=== PATIENT | female | born 2005 | race Caucasian/White ===

== ENCOUNTER 2024-08-01 10:57 | Inpatient (IN) ==
[2024-08-01] MEDS ORDERED: OXYTOCIN 30 UNITS/NSS 30 UNITS/500 ML BAG IV PRN ×2 (11:35→20:16)
[2024-08-01] MEDS ORDERED: CALCIUM CARBONATE 500 MG CHEWABLE TAB PO PRN (11:35)
[2024-08-01] MEDS ORDERED: LIDOCAINE 1% LOCAL 20 ML VIAL INFIL PRN (11:35)
[2024-08-01] MEDS: OXYTOCIN 30 UNITS/NSS 30 UNITS/500 ML BAG IV PRN (12:16)
[2024-08-01] MEDS: LACTATED RINGER'S 1,000 ML IV PRN (12:17)
[2024-08-01 12:18] LABS: Hematocrit (blood only) 36.7 % (37.0-47.0); Hemoglobin 12.2 g/dl (12.0-16.0); Mean Corpuscular Hemoglobin 30.8 pg (25.0-34.0); Mean Corpuscular Hgb Conc 33.2 g/dL (32.0-36.0); Mean Corpuscular Volume 92.7 fL (80.0-100.0); Mean Platelet Volume 10.8 fL (9.4-12.4); Platelet Count 194 K/uL (130-400); RDW Coefficient of Variation 14.9 % (11.5-14.5); RDW Standard Deviation 50.5 fL (36.4-46.3); Red Blood Count 3.96 M/uL (4.20-5.40); White Blood Count 7.53 K/ul (4.8-10.8)
[2024-08-01] MEDS ORDERED: BUPIVACAINE 0.25% PF 30 ML VIAL EPI PRN (15:02)
[2024-08-01] MEDS ORDERED: NALBUPHINE HCL INJ 10 MG/ML AMP IV PRN (15:02)
[2024-08-01] MEDS ORDERED: diphenhydrAMINE 50 MG/ML VIAL IV PRN (15:02)
[2024-08-01] MEDS ORDERED: LIDOCAINE 2% MPF LOCAL 5 ML VIAL EPI PRN (15:02)
[2024-08-01] MEDS ORDERED: ROPIVACAINE 0.5% PF 5 MG/ML 20 ML VIAL EPI PRN (15:02)
[2024-08-01] MEDS ORDERED: SODIUM CHLORIDE 0.9% PF INJ 10 ML VIAL EPI PRN (15:02)
[2024-08-01] MEDS ORDERED: NALOXONE HCL 1 MG in SODIUM CHLORIDE 0.9% 1,000 ML IV PRN (15:02)
[2024-08-01] MEDS ORDERED: ONDANSETRON INJ 2 MG/ML 2 ML VIAL IV PRN (15:02)
[2024-08-01] MEDS ORDERED: fentaNYL citrate PF 100 MCG/2 ML VIAL EPI PRN (15:02)
[2024-08-01] MEDS ORDERED: fentANYL 2 MCG/ML BUPIVacaine 0.125%-NSS 100ML BAG EPI PRN (15:02)
[2024-08-01] MEDS ORDERED: ePHEDrine sulfate 50 MG/ML AMP IV PRN (15:02)
[2024-08-01] MEDS ORDERED: NALOXONE HCL 0.4 MG/1 ML VIAL/CARP IV PRN (15:02)
--- NOTE | 2024-08-01 15:06 | Anesthesiology Consultation ---
Date of Service August 01, 2024 Assessment & Plan (1) Encounter for pre-operative examination: Chart Review Chart Review: Patient NOT seen in Pre Admission Testing and Acceptable Risk for Labor Epidural Consults Requested none History Height/Weight Height: 5 ft 10 in Weight: 107.592 kg Allergies Allergy/AdvReac Type Severity Reaction Status Date / Time shrimp Allergy Severe Anaphylaxis Verified 08/01/24 11:39 azithromycin Allergy Intermediate Hives Verified 07/30/24 10:00 Medications Home Medications Medication Instructions Recorded Confirmed Last Taken 21-iron fu-folic acid PO 12/19/23 07/30/24 Unknown [ Complete] Active Medications Generic Name Dose Route Start Last Admin Trade Name Freq PRN Reason Stop Dose Admin Lactated Ringer's 1,000 mls @ 125 mls/hr 08/01/24 11:35 08/01/24 14:50 Lr IV 08/02/24 11:34 999 mls/hr .Q8H PRN Infusion L&D Protocol Protocol Oxytocin 30 units in 500 mls @ 7 mls/hr 08/01/24 11:35 08/01/24 14:00 Pitocin 30 Units/Nss IV 08/03/24 11:34 0.42 units/hr .Q24H PRN 7 mls/hr Labor Induction/Augmentation Titration Protocol 0.42 UNITS/HR Past Medical History Medical History (Updated 08/01/24 @ 15:06 by Anthony Farmer MD) Encounter for pre-operative examination Varicella vaccination Exercise / Class Metabolic Activity II 4-5 Yardwork/Stairs/Walk up hill Past Family History Family History Grandmother (Maternal) Breast cancer Diabetes Hypertension Hypercholesteremia Grandfather (Maternal) Asthma Depression Mother Asthma Migraine Depression Gestational diabetes Aunt Osteoporosis Denies family history of Ovarian cancer Colorectal cancer Past Surgical History Surgical History No history of previous surgery Past Anesthesia History No Hx of Anesthesia Complications and No Family Hx of Anesthesia Complications Social History Smoking Status: Never smoker Do You Dip or Chew Tobacco: No Hx Alcohol Use: No Hx Substance Use: No Physical Exam Vital Signs Last Vital Signs Temp 36.6 C 08/01/24 14:02 Pulse 89 08/01/24 15:29 Resp 20 08/01/24 14:02 BP 147/77 H 08/01/24 15:28 Pulse Ox 100 08/01/24 15:29 Testing Laboratory Results 08/01/24 11:54
[2024-08-01] MEDS: fentaNYL citrate PF 100 MCG/2 ML VIAL EPI STA (15:28)
[2024-08-01] MEDS: BUPIVACAINE 0.25% PF 30 ML VIAL ONE (15:29)
[2024-08-01] MEDS: fentANYL 2 MCG/ML BUPIVacaine 0.125%-NSS 100ML BAG ONE (15:29)
[2024-08-01] MEDS: LIDOCAINE 2%/EPINEPHRINE 1:200,000 20 ML PF ONE (15:29)
--- NOTE | 2024-08-01 16:07 | Labor Progress Brief Note ---
Date of Service August 01, 2024 Subjective comfortable with epidural. Assessment & Plan (1) PROM (premature rupture of membranes): (2) Encounter for induction of labor: Plan good cx progress. fhts categ 1. c/w pitocin Physical Exam Constitutional: WD/WN, vitals as above Genitourinary: Manual OB Exam: + cervical dilation 4 cm, + cervical effacement 90% and + station -1 OB Exam Monitor Tracing: + external FHT monitor used, + external uterine monitor used (q3), + category I and + normal FHT variability Results & Data Vital Signs (Past 12 Hours) Vital Signs Temp Pulse Resp BP Pulse Ox 08/01/24 16:04 98 08/01/24 16:04 77 08/01/24 16:00 72 08/01/24 16:00 93/54 L 08/01/24 15:59 98 08/01/24 15:59 70 08/01/24 15:56 60 08/01/24 15:56 85/49 L 08/01/24 15:54 99 08/01/24 15:54 80 08/01/24 15:52 90 08/01/24 15:52 120/60 08/01/24 15:49 97 08/01/24 15:49 86 08/01/24 15:47 102 H 08/01/24 15:47 109/68 08/01/24 15:44 98 08/01/24 15:44 93 H 08/01/24 15:40 109 H 08/01/24 15:40 120/65 08/01/24 15:39 98 08/01/24 15:39 93 H 08/01/24 15:38 96 H 08/01/24 15:38 130/71 08/01/24 15:36 99 H 08/01/24 15:36 124/70 08/01/24 15:35 18 08/01/24 15:35 18 08/01/24 15:34 98 08/01/24 15:34 99 H 08/01/24 15:34 131/69 08/01/24 15:32 100 H 08/01/24 15:32 140/76 08/01/24 15:30 18 08/01/24 15:30 18 08/01/24 15:30 94 H 08/01/24 15:30 138/78 08/01/24 15:29 100 08/01/24 15:29 89 08/01/24 15:28 88 08/01/24 15:28 147/77 H 08/01/24 15:26 87 08/01/24 15:26 143/74 H 08/01/24 15:25 20 08/01/24 15:25 20 08/01/24 15:25 105 H 08/01/24 15:25 153/103 H 08/01/24 15:24 100 08/01/24 15:24 86 08/01/24 15:19 100 08/01/24 15:19 94 H 08/01/24 15:14 99 08/01/24 15:14 93 H 08/01/24 15:04 97.9 F 08/01/24 15:03 96 H 08/01/24 15:03 158/86 H 08/01/24 14:02 20 08/01/24 14:02 97.9 F 20 08/01/24 14:01 77 08/01/24 14:01 138/82 08/01/24 13:19 81 08/01/24 13:19 127/73 08/01/24 12:18 98.1 F 08/01/24 12:17 86 08/01/24 12:17 132/76 08/01/24 11:10 98.2 F 18 08/01/24 11:07 109 H 135/83 Coding Level of Care Code None Diagnoses PROM (premature rupture of membranes) O42.90 Encounter for induction of labor Z34.90
[2024-08-01] MEDS: LIDOCAINE 2%/EPINEPHRINE 1:200,000 20 ML PF EPI STA (16:13)
[2024-08-01] MEDS: fentaNYL citrate PF 100 MCG/2 ML VIAL ONE (16:13)
[2024-08-01] MEDS: SODIUM CHLORIDE 0.9% PF INJ 10 ML VIAL ONE (16:13)
[2024-08-01] MEDS: BUPIVACAINE 0.25% PF 30 ML VIAL EPI STA (16:13)
[2024-08-01] MEDS: SODIUM CHLORIDE 0.9% PF INJ 10 ML VIAL EPI STA (16:13)
--- NOTE | 2024-08-01 19:54 | Delivery Summary ---
Vaginal Delivery Summary Date of Service August 01, 2024 Vaginal Delivery Summary The patient dilated to complete and pushed to deliver a viable female infant Apgars 8 and 9 via over intact perineum. Mouth and nose bulb suctioned at perineum. Shoulders and body delivered with ease. Infant was vigorous and crying at . Cord clamped at 40 seconds of life and to maternal abdomen where the cord was then doubly clamped and cut. Placenta delivered spontaneously and intact, three-vessel cord. Hemostasis achieved with dilute pitocin and uterine massage. Vaginal laceration noted with active bleeding and reapproximated/repaired with 3-0 vicryl for excellent hemostasis. Cervix and sulci intact. QBL 291 cc. Mother and baby stable in recovery. [facility] Vaginal Delivery Charge Delivery Type Details:
[2024-08-01] MEDS ORDERED: ACETAMINOPHEN 325 MG TAB PO PRN (20:16)
[2024-08-01] MEDS ORDERED: oxyCODONE/ACETAMINOPHEN 5mg/325mg TAB PO PRN (20:16)
[2024-08-01] MEDS ORDERED: HYDROCORTISONE ACETATE 25 MG SUPP PR PRN (20:16)
--- NOTE | 2024-08-01 20:34 | Anesthesia Procedure Note ---
Date of Service August 01, 2024 Anesthesia Post Epidural Note Vital Signs Vital Signs: Temp Pulse Resp BP Pulse Ox 36.6 C 97 H 16 130/73 97 08/01/24 19:15 08/01/24 20:29 08/01/24 19:32 08/01/24 20:26 08/01/24 20:29 Pain Intensity Bilateral Abdomen: Pain Intensity: 2 Notes Mental Status: alert / awake / arousable and participated in evaluation Nausea / Vomiting: adequately controlled Pain: adequately controlled Airway Patency, RR, SpO2: stable & adequate BP & HR: stable & adequate Hydration State: stable & adequate Neuraxial Anesthesia: was administered and sensory block is resolving Anesthetic Complications: no major complications apparent and Pt Satisfied with anesthetic care Epidural: Removed without complications and With tip intact
[2024-08-02] MEDS: DIPHTHER/TETAN/PERTUS Vaccine (Tdap, Adol/Adult) 0.5mL IM ONE (02:17)
[2024-08-02] MEDS: DOCUSATE SODIUM 100 MG CAP PO SCH (02:17)
[2024-08-02] MEDS: ePHEDrine sulfate 50 MG/ML AMP ONE (02:17)
--- NOTE | 2024-08-02 07:06 | Obstetrical Progress Note ---
Date of Service August 02, 2024 Assessment & Plan (1) care and examination: Plan stable, doing well. routine care. may consider dc later today. instructions reviewed. lara azul ri. Subjective Ambulation: ambulating normally Voiding: no voiding problems Diet Tolerance:: regular diet Lochia:: Small Feeding Type:: bottle feeding denies pain issues. Constitutional: + as per Subjective / HPI Physical Exam Constitutional WD/WN, vitals as above Respiratory normal respiratory effort, lungs clear to auscultation Cardiovascular Rate/Rhythm: regular rate and regular rhythm Gastrointestinal (Abdomen) Inspection/Auscultation: abdomen normal to inspection Percussion/Palpation: abdomen soft Fundus firm 1cm down Musculoskeletal nt calves no edema Neurologic grossly normal Psychiatric A+Ox3, euthymic affect Results & Data Vital Signs (Past 12 Hours) Vital Signs Temp Pulse Pulse Resp BP BP Pulse Ox 08/02/24 03:30 98.4 F 83 16 135/78 98 08/01/24 22:10 98.8 F 96 H 20 135/77 98 08/01/24 21:50 98.1 F 16 08/01/24 21:42 97 H 08/01/24 21:42 133/80 08/01/24 21:27 94 H 08/01/24 21:27 131/84 08/01/24 21:12 98 H 08/01/24 21:12 130/72 08/01/24 20:56 80 08/01/24 20:56 128/68 08/01/24 20:42 76 08/01/24 20:42 119/65 08/01/24 20:29 97 08/01/24 20:29 97 H 08/01/24 20:26 84 08/01/24 20:26 130/73 08/01/24 20:24 97 08/01/24 20:24 97 H 08/01/24 20:19 97 08/01/24 20:19 92 H 08/01/24 20:14 97 08/01/24 20:14 97 H 08/01/24 20:11 93 H 08/01/24 20:11 134/74 08/01/24 20:09 97 08/01/24 20:09 96 H 08/01/24 20:04 98 08/01/24 20:04 93 H 08/01/24 19:59 97 08/01/24 19:59 91 H 08/01/24 19:57 95 H 08/01/24 19:57 132/74 08/01/24 19:54 98 08/01/24 19:54 94 H 08/01/24 19:49 97 08/01/24 19:49 101 H 08/01/24 19:44 97 08/01/24 19:44 95 H 08/01/24 19:39 97 08/01/24 19:39 96 H 08/01/24 19:34 98 08/01/24 19:34 107 H 08/01/24 19:32 16 08/01/24 19:32 16 08/01/24 19:29 98 08/01/24 19:29 117 H 08/01/24 19:24 97 08/01/24 19:24 97 H 08/01/24 19:19 99 08/01/24 19:19 109 H 08/01/24 19:15 16 08/01/24 19:15 97.9 F 16 08/01/24 19:15 100 H 08/01/24 19:15 133/74 08/01/24 19:14 98 08/01/24 19:14 98 H 08/01/24 19:11 16 08/01/24 19:11 16 08/01/24 19:09 100 08/01/24 19:09 105 H O2 Del Method 08/02/24 03:30 Room Air 08/01/24 22:10 Room Air 08/01/24 21:50 08/01/24 21:42 08/01/24 21:42 08/01/24 21:27 08/01/24 21:27 08/01/24 21:12 08/01/24 21:12 08/01/24 20:56 08/01/24 20:56 08/01/24 20:42 08/01/24 20:42 08/01/24 20:29 08/01/24 20:29 08/01/24 20:26 08/01/24 20:26 08/01/24 20:24 08/01/24 20:24 08/01/24 20:19 08/01/24 20:19 08/01/24 20:14 08/01/24 20:14 08/01/24 20:11 08/01/24 20:11 08/01/24 20:09 08/01/24 20:09 08/01/24 20:04 08/01/24 20:04 08/01/24 19:59 08/01/24 19:59 08/01/24 19:57 08/01/24 19:57 08/01/24 19:54 08/01/24 19:54 08/01/24 19:49 08/01/24 19:49 08/01/24 19:44 08/01/24 19:44 08/01/24 19:39 08/01/24 19:39 08/01/24 19:34 08/01/24 19:34 08/01/24 19:32 08/01/24 19:32 08/01/24 19:29 08/01/24 19:29 08/01/24 19:24 08/01/24 19:24 08/01/24 19:19 08/01/24 19:19 08/01/24 19:15 08/01/24 19:15 08/01/24 19:15 08/01/24 19:15 08/01/24 19:14 08/01/24 19:14 08/01/24 19:11 08/01/24 19:11 08/01/24 19:09 08/01/24 19:09
[2024-08-02] MEDS: IBUPROFEN 600 MG TAB PO PRN (09:31)
[2024-08-02] MEDS: PRENATAL VITAMIN 1 TAB PO SCH (09:32)
[2024-08-02] MEDS: BENZOCAINE 20% SPRY 85 APPLN/85 GM CAN EXT PRN (09:35)
--- NOTE | 2024-08-02 14:34 | Ultrasound Report ---
Examination: Doppler venous ultrasound of the lower extremity Comparison: None Technique: Grayscale evaluation with compression, spectral flow, and color Doppler assessment of the deep venous system of the leg, from the groin to the knee, as well as the lower leg Findings: The external iliac, common femoral, femoral, popliteal, peroneal, anterior and posterior tibial veins demonstrate normal compressibility and blood flow. Impression: No evidence for DVT of the right lower extremity Electronically signed by Koby Zheng 08-02-2024 2:34 PM
[2024-08-02] MEDS: bisacodyL 5 MG TABEC PO SCH (20:47)
[2024-08-02 23:34] VITALS: O2SAT 98
[2024-08-03 07:53] VITALS: BP 131/78; RESP 20; TEMP 98.4
--- NOTE | 2024-08-03 08:43 | Obstetrical Progress Note ---
Date of Service August 03, 2024 Assessment & Plan (1) care and examination: Stayed until today d/t infant jaundice concerns, reportedly doing well and can d'c home today. Subjective Ambulation: ambulating normally Voiding: no voiding problems Passing Gas:: Yes Diet Tolerance:: regular diet Lochia:: Small Feeding Type:: breast feeding Physical Exam Constitutional WD/WN, vitals as above Eyes PERRL, conjunctivae normal, anicteric sclerae Neck normal visual inspection Respiratory normal respiratory effort and able to speak in complete sentences; no respiratory distress and no labored breathing Cardiovascular Rate/Rhythm: regular rate and regular rhythm Extremities: no edema Chest (Breasts) Chest: normal inspection of chest Gastrointestinal (Abdomen) Inspection/Auscultation: abdomen normal to inspection Soft, postgravid Psychiatric A+Ox3, euthymic affect Genitourinary OB Exam Abdomen: + fundal height Fundus: + firm and + relation to umbilicus (fundus just below umbilicus); not tender Results & Data Vital Signs (Past 12 Hours) Vital Signs Temp Pulse Pulse Resp BP Pulse Ox O2 Del Method 08/03/24 07:50 98.4 F 93 H 20 131/78 Room Air 08/02/24 23:32 98.2 F 84 16 128/75 98 Room Air
[2024-08-03 10:52] VITALS: PULSE 84
== END 2024-08-03 10:54 | disposition home or self-care (01) | DRG 807 ==
LOC: OPB 10:57 → 4S1 11:01 → 4E2 22:31